=== PATIENT | male | born 1990 | race Two or more races ===

== ENCOUNTER 2016-11-25 23:09 | Emergency (ER) | payer SELFPAY ==
[2016-11-25 23:23] VITALS: BP 134/78; PULSE 86; TEMP 97.6; BMI 24.4
--- NOTE | 2016-11-26 02:27 | EDPRACDOC ---
- General Information Chief Complaint: Skin Rash (not drug induced) Stated Complaint: RASH Information Source: Patient Home Medications: Home Medications Prednisone [Deltasone, Orasone] 40 mg PO DAILY 5 Days 11/26/16 Allergies/Adverse Reactions: Allergies Allergy/AdvReac Type Severity Reaction Status Date / Time No Known Allergies Allergy Verified 11/25/16 23:23 - History of Present Illness Onset: 3 weeks HPI: C/o itchy raised red rash starting on lower back bilaterally that then spread to rest of trunk and arms and legs x 3 weeks. rash goes away with benedryl and then comes back. Denies fever, sob, issues swallowing, N/V, new soaps, laundry detergents, new chemicals at work. Denies sob or any associated sx other than itching. Rash Location: Reports: Arms, Back, Legs Quality: Reports: Pruritic, Red, Urticarial Relevant History of: Reports: None Irritability: Moderate Pain Severity: Moderate Associated Signs and Symptoms: Denies: Abdominal pain, Conjunctivitis, Facial swelling, Fever, Headache, Leg nodules, Mouth lesions, Myalgias, Red streaking, Sore throat, None, MA, O ED Past Medical History - History Reviewed Yes Nurses notes reviewed and agree except as marked - Patient Medical History Psychological History: Denies: Depression - Social Medical History Smoking Status: Never smoker EDM Review of Systems - Review of Systems ROS Negative Except as Marked: Yes All systems reviewed and were negative except as marked Integumentary: Rash - Physical Exam Constitutional: No apparent distress, Alert Oriented to: Time, Person, Place Last recorded Vital Signs: Last Vital Signs Temp 97.6 F 11/25/16 23:19 Pulse 86 11/25/16 23:19 Resp 20 11/25/16 23:19 BP 134/78 11/25/16 23:19 Pulse Ox 100 11/25/16 23:19 Oxygen Pulse Oxygen Saturation 100 O2 Device Room Air Oxygen Flow Rate Fraction of Inspired Oxygen ( FIO2) - HEENT Head: Normal Eye Exam: negative: Conjunctival Injection, Scleral Icterus Oropharynx: negative: Drooling TMJ: Normal Nose: No Symptoms Reported Neck: Normal - Respiratory/Cardiovascular Respiratory: Normal - CTA Cardiovascular: Normal - GI Tenderness: Non tender - Musculoskeletal Back: Normal Extremities: Normal - Integumentary Skin: Rash - Neurologic Mood Description: Normal Thought: Coherent Perception: Normal Decision Time to Discharge: 02:29 - Departure Disposition: Home Condition: Stable Final Diagnosis: Urticaria Instructions: Acute Rash (ED) Education/Counseling Given To: Patient Education/Counseling Given Regarding: Diagnosis, Treatment, Prognosis, Follow Up Referrals: Rangel Espino MD [Staff Physician] - One Week Prescriptions: Prednisone [Deltasone, Orasone] 40 mg PO DAILY 5 Days Additional Instructions: Follow up with primary care. Take prednisone 1 tablet daily for 5 days. Return to ED for any new or worsening symptoms
== END 2016-11-26 02:50 | disposition home or self-care (01) ==
LOC: ED 23:09
DX: L50.9 Urticaria, unspecified (principal)
CPT/HCPCS: 99282